=== PATIENT | male | born 1985 | race American Indian/Alaskan Native ===

== ENCOUNTER 2017-12-22 17:41 | Emergency (ER) | payer SELFPAY ==
[2017-12-22] MEDS ORDERED: TYLENOL ONE (18:25)
[2017-12-22] MEDS ORDERED: TYLENOL PO ONE (18:28)
--- NOTE | 2017-12-22 20:44 | Emergency Department Report ---
ED ENT HPI - General Chief complaint: Sore Throat Stated complaint: ABSCESS/THROAT Time Seen by Provider: 12/22/17 20:43 Source: patient Mode of arrival: Ambulatory Limitations: No Limitations - History of Present Illness Initial comments: This is a 32-year-old male reports emergency room that he has been having sore throat for the last couple days and he has a history of chronic strep and he also reports that he was having fever. His sore throat is 7 out of 10 and achy. Pain is worse with swallowing and no alleviating factors. Patient said he takes Bicillin when he gets strep and last time he took was 6 months ago. He reports fever. Denies any chest pain or shortness of breath. Denies any respiratory symptoms. MD complaint: sore throat Onset/Timin -: days(s) Location: throat Severity: severe Severity scale (0 -10): 7 Quality: aching Consistency: constant Improves with: none Worsens with: swallowing, eating Context-Epistaxis: other (history of recurrent strep throat at least 3 times a year) Associated Symptoms: fever, pain with swallowing, sore throat. denies: cough, gum swelling, toothache, tinnitus, hearing loss, discharge from ear, rhinorrhea - Related Data Previous Rx's Medication Instructions Recorded Last Taken Type Ibuprofen [Motrin] 800 mg PO Q8HR PRN #15 tablet 12/22/17 Unknown Rx predniSONE [Deltasone] 50 mg PO QDAY 3 Days #3 tab 12/22/17 Unknown Rx Allergies Allergy/AdvReac Type Severity Reaction Status Date / Time No Known Allergies Allergy Unverified 12/22/17 18:27 ED Dental HPI - General Chief complaint: Sore Throat Stated complaint: ABSCESS/THROAT Time Seen by Provider: 12/22/17 20:43 Source: patient Mode of arrival: Ambulatory Limitations: No Limitations - Related Data Previous Rx's Medication Instructions Recorded Last Taken Type Ibuprofen [Motrin] 800 mg PO Q8HR PRN #15 tablet 12/22/17 Unknown Rx predniSONE [Deltasone] 50 mg PO QDAY 3 Days #3 tab 12/22/17 Unknown Rx Allergies Allergy/AdvReac Type Severity Reaction Status Date / Time No Known Allergies Allergy Unverified 12/22/17 18:27 ED Review of Systems ROS: Stated complaint: ABSCESS/THROAT Other details as noted in HPI Constitutional: chills, fever Eyes: denies: eye pain, eye discharge, vision change ENT: throat pain. denies: ear pain, dental pain, congestion Respiratory: denies: cough, shortness of breath, SOB with exertion, SOB at rest , wheezing Cardiovascular: denies: chest pain, palpitations, edema, syncope Gastrointestinal: denies: abdominal pain, nausea, vomiting, diarrhea Genitourinary: denies: urgency, dysuria Musculoskeletal: denies: back pain, joint swelling, arthralgia Skin: denies: rash, lesions Neurological: denies: headache, weakness, paresthesias Psychiatric: denies: anxiety, depression Hematological/Lymphatic: denies: easy bleeding, easy bruising ED Past Medical Hx - Past Medical History Previous Medical History?: No - Surgical History Past Surgical History?: No - Family History Family history: hypertension - Social History Smoking Status: Current Every Day Smoker Substance Use Type: None - Medications Home Medications: Home Medications Medication Instructions Recorded Confirmed Last Taken Type Ibuprofen [Motrin] 800 mg PO Q8HR PRN #15 tablet 12/22/17 Unknown Rx predniSONE [Deltasone] 50 mg PO QDAY 3 Days #3 tab 12/22/17 Unknown Rx ED Physical Exam - General Limitations: No Limitations General appearance: alert, in no apparent distress - Head Head exam: Present: atraumatic, normocephalic, normal inspection - Eye Eye exam: Present: normal appearance, PERRL, EOMI Pupils: Present: normal accommodation - ENT ENT exam: Present: normal exam, normal orophraynx, mucous membranes moist, TM's normal bilaterally, normal external ear exam - Neck Neck exam: Present: normal inspection, full ROM, lymphadenopathy, other. Absent : tenderness - Expanded Neck Exam Expanded Neck exam: Absent: tenderness, anterior neck swelling, thyroid mass, tracheal deviation - Respiratory Respiratory exam: Present: normal lung sounds bilaterally. Absent: respiratory distress, chest wall tenderness - Cardiovascular Cardiovascular Exam: Present: normal rhythm, tachycardia, normal heart sounds. Absent: systolic murmur, diastolic murmur - GI/Abdominal GI/Abdominal exam: Present: soft, normal bowel sounds. Absent: distended, tenderness, guarding, rebound, rigid, organomegaly, mass, bruit, pulsatile mass - Extremities Exam Extremities exam: Present: normal inspection, full ROM, normal capillary refill , other. Absent: tenderness, pedal edema, joint swelling, calf tenderness - Back Exam Back exam: Present: normal inspection, full ROM, other (ambulates without any difficulties). Absent: tenderness, CVA tenderness (R), CVA tenderness (L), muscle spasm, paraspinal tenderness, vertebral tenderness, rash noted - Neurological Exam Neurological exam: Present: alert, oriented X3, normal gait, reflexes normal. Absent: motor sensory deficit - Psychiatric Psychiatric exam: Present: normal affect, normal mood - Skin Skin exam: Present: warm, dry, intact, normal color. Absent: rash ED Course Vital Signs 12/22/17 12/22/17 12/22/17 18:25 18:31 22:20 Temperature 100 F H 99.1 F Pulse Rate 107 H 98 H Respiratory 18 20 18 Rate Blood Pressure 166/117 147/84 O2 Sat by Pulse 97 97 Oximetry Vital Signs 12/22/17 12/22/17 12/22/17 18:25 18:31 22:20 Temperature 100 F H 99.1 F Pulse Rate 107 H 98 H Respiratory 18 20 18 Rate Blood Pressure 166/117 147/84 O2 Sat by Pulse 97 97 Oximetry - Reevaluation(s) Reevaluation #1: 12/22/17 21:16 Patient was given Tylenol 650 mg those ordered by attending physician for fever and sore throat which did not help his sore throat therefore he will be given Motrin and Solu-Medrol. Reevaluation #2: 12/22/17 22:14 Patient given Bicillin 1.2 million units IM, Solu-Medrol 125 mg IM, to treat strep throats and tonsillar swelling. No adverse reaction noted. Patient studies film a lot better. Vital signs are stable and temperature is below 100. He is able tolerate oral liquids. ED Medical Decision Making - Lab Data Lab Results 12/22/17 Range/Units 18:55 Group A Strep Rapid Positive A (Negative) - Medical Decision Making This is a 32-year-old male here reports that he has history of repeat strep every 3-4 months and that he usually gets Bicillin. He is reporting sore throat , fever and swollen tonsils. Patient blood pressure is elevated and he said his blood pressure is always elevated when he states he does not have a history of high blood pressure. He last took Bicillin 6 months ago for strep throat. Patient denies any drooling. Patient was examined by myself and physical exam normal except he has bilateral enlarged tonsils at 3+, exudates oropharynx, bilateral anterior cervical lymphadenopathy, tongue is normal, uvula is midline and oral airways patent. He does not have any trismus. Patient with elevated blood pressure without a history of high blood pressure. He has fever and mild tachycardia. Strep test positive for strep A. This is discussed the patient and he gets recurrent strep. I discussed with him that since he takes Bicillin so often that he should try another antibiotic because he might have resistant to this medication but he chose to have Bicillin instead. Patient was given Bicillin LA 1.2 million units IM for strep throats, site a Medrol 125 mg IM for tonsillar enlargement. He was given Tylenol 650 mg initially for fever and sore throat but he said it did not work so he was given Motrin 800 mg by mouth which helped. Patient was observed in the emergency room and upon reevaluation tonsils reduce to 2+, oral airway remained patent, vital signs are stable, fever reduced to 99.1. Patient voiced reduce and sore throat. He said is feeling better and his blood pressure is back to be in stable. I discussed the patient that he needs to follow up with ear nose and throat regarding recurrent strep throat and that he might needs his tonsils removed and he voiced understanding and I also told him that he needs to keep a log of his blood pressure and take to primary care doctor and if he does not have a primary care he can follow-up with outside Medical Center and he is in agreement. Patient discharged home in stable condition with prescription for prednisone and Motrin. He is nontoxic in appearance and feels better. Critical care attestation.: If time is entered above; I have spent that time in minutes in the direct care of this critically ill patient, excluding procedure time. ED Disposition Clinical Impression: Strep sore throat, Tonsillar enlargement, Fever in adult, Elevated blood pressure reading without diagnosis of hypertension Disposition: DC-01 TO HOME OR SELFCARE Is pt being admited?: No Does the pt Need Aspirin: No Condition: Stable Instructions: Strep Throat (ED), Heart Healthy Diet (ED), Fever in Adults (ED) , Hypertension (ED) Additional Instructions: Follow-up with primary care physician in 3 days, strep throat, elevated blood pressure. If your condition worsens to include difficulty breathing, swallowing, chest pain, nausea and vomiting and fever, please return to the emergency room DIDI. Gargle with warm salt water Take Motrin for fever and sore throats as prescribed but please try to take this medication with food as it causes stomach upset when taken on an empty stomach Take prednisone as prescribed to reduce enlarged tonsils. He reports that he gets strep throats 3 times a year. He also reports that you received Bicillin 6 months ago. I counseled use that you will need to follow up with ear nose and throat for evaluation of recurrent strep throat. I also counseled the use that after receiving the same antibiotic multiple times you can develop resistant and I gave him an option to try another antibiotic but he chose to take Bicillin. Your blood pressure was elevated today in emergency room and this could be because you are sick so, keep a log of your blood pressure and if still elevated take to primary care doctor or [facility] primary care for evaluation Increasing fluid intake Prescriptions: Ibuprofen [Motrin] 800 mg PO Q8HR PRN #15 tablet PRN Reason: sore throat and fever predniSONE [Deltasone] 50 mg PO QDAY 3 Days #3 tab Referrals: STEVE JHAVERI MD [Primary Care Provider] - 2-3 Days [facility] [Outside] - 2-3 Days Forms: Work/School Release Form(ED)
[2017-12-22] MEDS ORDERED: SOLU-Medrol IM ONE (20:50)
[2017-12-22] MEDS ORDERED: BICILLIN L-A IM ONE (20:50)
[2017-12-22] MEDS ORDERED: MOTRIN PO ONE (20:50)
[2017-12-22 22:29] VITALS: BP 147/84
== END 2017-12-22 22:39 | disposition home or self-care (01) ==
LOC: ED 17:41
DX: J02.0 Streptococcal pharyngitis (principal); J35.1 Hypertrophy of tonsils; R03.0 Elevated blood-pressure reading, without diagnosis of hypertension
CPT/HCPCS: 87430; 96372; 99283; J0561; J2930

== ENCOUNTER 2020-09-04 12:07 | Emergency (ER) | payer SELFPAY ==
--- NOTE | 2020-09-04 12:49 | Event Note ---
ED Screening Note ED Screening Note: left sided testicular pain and lower abd naheed states it has been a couple months states it increased 2 days ago +nausea no v/d no dysuria no urinary retention states having regular BMs no penile discharge PMHx none no allergies to meds This initial assessment/diagnostic orders/clinical plan/treatment(s) is/are subject to change based on patients health status, clinical progression and re- assessment by fellow clinical providers in the ED. Further treatment and workup at subsequent clinical providers discretion. Patient/guardian urged not to elope from the ED as their condition may be serious if not clinically assessed and managed. Initial orders include: labs, UA, US
[2020-09-04 14:01] LABS: Basophils % (Auto) 0.5 % (0.0-1.8); Eosinophils # (Auto) 0.2 K/mm3 (0.0-0.4); Eosinophils % (Auto) 2.2 % (0.0-4.3); Hematocrit 43.1 % (35.5-45.6); Hemoglobin 14.9 gm/dl (11.8-15.2); Lymphocytes # (Auto) 1.3 K/mm3 (1.2-5.4); Lymphocytes % (Auto) 14.8 % (13.4-35.0); Mean Corpuscular HGB Conc 35 % (32-34); Mean Corpuscular Volume 88 fl (84-94); Monocytes # (Auto) 1.1 K/mm3 (0.0-0.8); Monocytes % (Auto) 12.2 % (0.0-7.3); Platelet Count 290 K/mm3 (140-440); Red Blood Count 4.88 M/mm3 (3.65-5.03); Red Cell Distribution Width 14.7 % (13.2-15.2)
--- NOTE | 2020-09-04 14:03 | Ultrasound Report ---
ULTRASOUND SCROTUM INDICATION / CLINICAL INFORMATION: left sided testicular pain. COMPARISON: None available. FINDINGS -- RIGHT TESTIS: Size = 4.2 x 1.8 x 2.8 cm. - Appearance: No significant abnormality. - Cyst or Mass: None. - Color Doppler Flow: No significant abnormality. EPIDIDYMIS: Tiny epididymal head cyst. Otherwise unremarkable. HYDROCELE: None. VARICOCELE: None demonstrated. FINDINGS -- LEFT TESTIS: Size = 3.7 x 2.7 x 2.8 cm. - Appearance: No significant abnormality. - Cyst or Mass: None. - Color Doppler Flow: No significant abnormality. EPIDIDYMIS: The left epididymis is asymmetrically enlarged and hyperemic. There is a complex cystic nodule in the epididymis, measuring 1.1 cm. HYDROCELE: None. VARICOCELE: Left-sided varicocele is present. ADDITIONAL FINDINGS: None. IMPRESSION: 1. Asymmetrically enlarged and hyperemic left epididymis, compatible with epididymitis. There is a 1. 1 cm complex cystic area in the epididymis, which may reflect complex epididymal cyst, though abscess is not excluded. 2. Left-sided varicocele. 3. Otherwise, no significant abnormality. No evidence of testicular torsion. Signer Name: Sarbjit Velasquez MD Signed: 09/04/2020 1:58 PM Workstation Name: [id number]
[2020-09-04 14:16] LABS: Bacteria,Urine 2+ /HPF (Negative); Bilirubin,Urine NEG (Negative); Blood,Urine NEG (Negative); Color,Urine Yellow (Yellow); Hyaline Casts,Urine 3 /LPF; Mucus,Urine 3+ /HPF
[2020-09-04 14:23] LABS: Alanine Aminotransferase 11 units/L (7-56); Albumin 4.1 g/dL (3.9-5); BUN/Creatinine Ratio 18; Blood Urea Nitrogen 14 mg/dL (9-20); Calcium 8.9 mg/dL (8.4-10.2); Hemolysis Index 17
[2020-09-04] MEDS ORDERED: ONDANSETRON 4 MG/2 ML INJ IV ONE (14:27)
[2020-09-04] MEDS ORDERED: MORPHINE 4 MG/1 ML INJ IV ONE (14:27)
--- NOTE | 2020-09-04 14:27 | Emergency Department Report ---
ED Male HPI - General Chief complaint: Abdominal Pain Stated complaint: ABD PAIN, TESTICULAR PAIN Time Seen by Provider: 09/04/20 12:48 Source: patient Mode of arrival: Ambulatory Limitations: No Limitations - History of Present Illness Initial comments: 5-year-old male presents to the ER today with complaints of left testicular pain. Patient states that the pain initially started about 2 months ago. He states that it was intermittent at first but in the past 2 days it has gotten worse. He states that prior to today he never had it checked out because he was homeless and had no insurance but he started a job a week ago and is soon to have insurance. He states that the pain in the past 2 days has been constant. He reports associated testicular swelling. He states that it seems to be worse when he moves from a sitting to a standing position, and sometimes when he lays down any particular position, and if he is walking too quickly. He reports mild dysuria but denies any hematuria, urinary frequency or urgency and he denies any penile discharge. Patient denies any fever or chills. He reports left groin pain but no abdominal pain, nausea or vomiting. He states that his last sexual intercourse was about 1 year ago. MD Complaint: testicle pain, testicle swelling -: month(s) (1.5) - Related Data Previous Rx's Medication Instructions Recorded Last Taken Type predniSONE [Deltasone] 50 mg PO QDAY 3 Days #3 tab 12/22/17 Unknown Rx DOXYCYCLINE Hyclate [Vibramycin 100 mg PO BID #14 capsule 09/04/20 Unknown Rx CAP] Ibuprofen [Motrin] 800 mg PO Q8HR PRN #30 tablet 09/04/20 Unknown Rx traMADoL [Ultram] 50 mg PO Q4HR PRN #15 tablet 09/04/20 Unknown Rx Allergies Allergy/AdvReac Type Severity Reaction Status Date / Time No Known Allergies Allergy Verified 09/04/20 12:23 ED Review of Systems ROS: Stated complaint: ABD PAIN, TESTICULAR PAIN Other details as noted in HPI Comment: All other systems reviewed and negative Constitutional: denies: chills, fever Eyes: denies: eye pain, eye discharge, vision change ENT: denies: ear pain, throat pain Respiratory: denies: cough, shortness of breath, SOB with exertion, SOB at rest, wheezing Cardiovascular: denies: chest pain, palpitations Gastrointestinal: denies: abdominal pain, nausea, vomiting, diarrhea, constipation, hematemesis, melena Genitourinary: dysuria, testicular pain. denies: frequency, hematuria, discharge, testicular mass Musculoskeletal: denies: back pain, joint swelling, arthralgia, myalgia Skin: denies: rash, lesions Neurological: denies: headache, weakness, numbness, paresthesias, confusion, abn ormal gait, vertigo Psychiatric: denies: anxiety, depression, auditory hallucinations, visual hallucinations, homicidal thoughts, suicidal thoughts Hematological/Lymphatic: denies: easy bleeding, easy bruising ED Past Medical Hx - Past Medical History Previous Medical History?: No - Surgical History Additional Surgical History: r hand sx- 1990 - Social History Smoking Status: Current Every Day Smoker Substance Use Type: Methamphetamines - Medications Home Medications: Home Medications Medication Instructions Recorded Confirmed Last Taken Type predniSONE [Deltasone] 50 mg PO QDAY 3 Days #3 tab 12/22/17 Unknown Rx DOXYCYCLINE Hyclate [Vibramycin 100 mg PO BID #14 capsule 09/04/20 Unknown Rx CAP] Ibuprofen [Motrin] 800 mg PO Q8HR PRN #30 tablet 09/04/20 Unknown Rx traMADoL [Ultram] 50 mg PO Q4HR PRN #15 tablet 09/04/20 Unknown Rx ED Physical Exam - General Limitations: No Limitations General appearance: in distress (Mild distress secondary to pain) - Head Head exam: Present: atraumatic, normocephalic, normal inspection - Eye Eye exam: Present: normal appearance, PERRL, EOMI Pupils: Present: normal accommodation - Neck Neck exam: Present: normal inspection - Respiratory Respiratory exam: Absent: respiratory distress - Cardiovascular Cardiovascular Exam: Present: regular rate - GI/Abdominal GI/Abdominal exam: Present: soft. Absent: distended, tenderness, guarding, rebound - exam: Present: testicular tenderness (Patient has tenderness to the bilateral testicle but more so to the left testicle with mild swelling noted to the left testicle; no apparent erythema, induration or fluctuance noted. No gangrene.). Absent: urethral discharge External exam: Present: normal external exam, other (No inguinal hernia noted). Absent: erythema, swelling, lesions, lacerations, ecchymosis, bleeding - Expanded Exam Expanded Male exam: Absent: phimosis, paraphimosis, penile swelling, lesions, induration, erythema, perineal induration, balanitis, priapism exam: Testicular Tenderness: Left, Testicular Swelling: Left, Epididymal Tenderness: Left - Extremities Exam Extremities exam: Present: normal inspection - Neurological Exam Neurological exam: Present: alert, oriented X3, CN II-XII intact, normal gait - Psychiatric Psychiatric exam: Present: normal affect, normal mood - Skin Skin exam: Present: intact ED Course Vital Signs 09/04/20 09/04/20 12:21 14:47 Temperature 98.4 F Pulse Rate 60 Respiratory 20 16 Rate Blood Pressure 130/73 O2 Sat by Pulse 96 Oximetry ED Medical Decision Making - Lab Data Result diagrams: 09/04/20 12:57 09/04/20 12:57 - Radiology Data Radiology results: report reviewed Patient: CLEMENTE GONZALEZ MR#: [id number] : 1985 Acct:[id number] Age/Sex: 35 / M ADM Date: 09/04/20 Loc: ED Attending Dr: Ordering Physician: JANEEN MAGANA Date of Service: 09/04/20 Procedure(s): US testicular doppler comp Accession Number(s): [id number] cc: JANEEN MAGANA ULTRASOUND SCROTUM INDICATION / CLINICAL INFORMATION: left sided testicular pain. COMPARISON: None available. FINDINGS -- RIGHT TESTIS: Size = 4.2 x 1.8 x 2.8 cm. - Appearance: No significant abnormality. - Cyst or Mass: None. - Color Doppler Flow: No significant abnormality. EPIDIDYMIS: Tiny epididymal head cyst. Otherwise unremarkable. HYDROCELE: None. VARICOCELE: None demonstrated. FINDINGS -- LEFT TESTIS: Size = 3.7 x 2.7 x 2.8 cm. - Appearance: No significant abnormality. - Cyst or Mass: None. - Color Doppler Flow: No significant abnormality. EPIDIDYMIS: The left epididymis is asymmetrically enlarged and hyperemic. There is a complex cystic nodule in the epididymis, measuring 1.1 cm. HYDROCELE: None. VARICOCELE: Left-sided varicocele is present. ADDITIONAL FINDINGS: None. IMPRESSION: 1. Asymmetrically enlarged and hyperemic left epididymis, compatible with epididymitis. There is a 1.1 cm complex cystic area in the epididymis, which may reflect complex epididymal cyst, though abscess is not excluded. 2. Left-sided varicocele. 3. Otherwise, no significant abnormality. No evidence of testicular torsion. Signer Name: Cameron Velasquez MD Signed: 09/04/2020 1:58 PM Workstation Name: [id number] Transcribed By: JUAN Dictated By: CAMERON VELASQUEZ MD Electronically Authenticated By: CAMERON VELASQUEZ MD Signed Date/Time: 09/04/20 135 DD/ 1353 TD/TT: - Medical Decision Making 1519: Testicular US show: Asymmetrically enlarged and hyperemic left epididymis, compatible with epididymitis. There is a 1.1 cm complex cystic area in the epididymis, which may reflect complex epididymal cyst, though abscess is not excluded. 2. Left-sided varicocele. 3. Otherwise, no significant abnormality. No evidence of testicular torsion. labs reviewed - CBC and CMP unremarkable. UA show 2+ bacteria but no no leukocy jam or nitrites, and only 1 WBC and 1 epithelial does not suggest UTI at this time but urine culture is pending. Patient is afebrile and his remaining vitals are stable. Discussed the case and ultrasound with Dr. Mosley, he suspect that patient likely has a epididymal cyst or abscess especially symptoms symptoms has been going on for 2 months, he is afebrile with a normal white count. And his p hysical exam did not show any signs of cellulitis, induration or fluctuance. He is currently resting comfortably, states he is feeling better after being given the IV morphine. Discussed lab and ultrasound results with patient. Discussed diagnosis of epididymitis with patient. He will be given a dose of Rocephin, and be discharged home on doxycycline. He will be given referral to urology for fo llow-up. Patient expressed understanding of instructions and agree with plan. Patient was stable at time of discharge. - Differential Diagnosis Epididymitis; testicular torsion, testicular/scrotal abscess, inguinal estephania Critical care attestation.: If time is entered above; I have spent that time in minutes in the direct care of this critically ill patient, excluding procedure time. ED Disposition Clinical Impression: Epididymitis, Left varicocele Disposition: - TO HOME OR SELFCARE Is pt being admited?: No Does the pt Need Aspirin: No Condition: Stable Instructions: Epididymitis, Epididymitis (ED) Additional Instructions: Recommend that you take the doxycycline, and take it to completion. Recommend that you take the Motrin and Ultram as needed for pain. Follow-up with urologist in 1 week. Recommend no sexual contact for about 1 to 2 weeks. Return to the ER if your symptoms changes or worsens in any way especially if you have increasing pain, swelling, or you develop any redness around the testicle, and fever of 100.5 or higher. Prescriptions: Ibuprofen [Motrin] 800 mg PO Q8HR PRN #30 tablet PRN Reason: pain traMADoL [Ultram] 50 mg PO Q4HR PRN #15 tablet PRN Reason: Pain DOXYCYCLINE Hyclate [Vibramycin CAP] 100 mg PO BID #14 capsule Referrals: [facility] [Provider Group] - 3-5 Days WILLY ANDERSON MD [Staff Physician] - 3-5 Days Forms: STI Treatment and Prevention, Work/School Release Form(ED) Time of Disposition: 15:14
[2020-09-04] MEDS ORDERED: cefTRIAXone/NS 1 GM/50 ML 1 GM/50 ML BAG IV ONE (15:34)
[2020-09-04 16:31] VITALS: BP 153/54
== END 2020-09-04 16:45 | disposition home or self-care (01) ==
LOC: ED 12:07
DX: N45.1 Epididymitis (principal); I86.1 Scrotal varices; F17.200 Nicotine dependence, unspecified, uncomplicated; Z79.899 Other long term (current) drug therapy
CPT/HCPCS: 36415; 80053; 81001; 83690; 85025; 87086; 93975; 96365; 96375; 99284; J0696; J2270; J2405